=== PATIENT | female | born 1990 | race American Indian/Alaskan Native ===

== ENCOUNTER 2017-06-27 17:34 | Emergency (ER) | payer OTHER ==
[2017-06-27] MEDS ORDERED: DECADRON IM ONE (23:40)
[2017-06-27] MEDS ORDERED: BENADRYL PO ONE (23:40)
[2017-06-27] MEDS ORDERED: PEPCID PO ONE (23:40)
--- NOTE | 2017-06-27 23:40 | Emergency Department Report ---
ED Allergic Reaction HPI - General Chief complaint: Allergic Reaction Stated complaint: BEE STING/DIZZY Source: patient Mode of arrival: Ambulatory Limitations: No Limitations - History of Present Illness Initial Comments: 27 year old female presents to ED with allergic reaction to bee sting. patient states she brushed bee off of her shirt after she was stung. patient states her tongue was swollen prior to ED visit but has began to resolve. patient states that tongue is now numb. patient is stable,neurologically intact and in no acute distress. patient denies SOB, PATRICE, wheezing. MD Complaint: allergic reaction -: Sudden Exposure: insect bite Symptoms: orolingual swelling Severity: mild Treatment Prior to Arrival: none - Related Data Previous Rx's Medication Instructions Recorded Last Taken Type Hydroxyzine HCl 25 mg PO BID #6 tablet 06/28/17 Unknown Rx Allergies Allergy/AdvReac Type Severity Reaction Status Date / Time aspirin AdvReac Unknown Verified 06/27/17 18:58 latex AdvReac Swelling Verified 06/27/17 18:58 red dye AdvReac Unknown Verified 06/27/17 18:58 ED Review of Systems ROS: Stated complaint: BEE STING/DIZZY Other details as noted in HPI Constitutional: denies: chills, fever Eyes: denies: eye pain, eye discharge, vision change ENT: denies: ear pain, throat pain Respiratory: denies: cough, shortness of breath, wheezing Cardiovascular: denies: chest pain, palpitations Endocrine: no symptoms reported Gastrointestinal: denies: abdominal pain, nausea, diarrhea Genitourinary: denies: urgency, dysuria, discharge Musculoskeletal: denies: back pain, joint swelling, arthralgia Skin: denies: rash, lesions Neurological: denies: headache, weakness, paresthesias Psychiatric: denies: anxiety, depression Hematological/Lymphatic: denies: easy bleeding, easy bruising ED Past Medical Hx - Past Medical History Previous Medical History?: No - Surgical History Past Surgical History?: Yes Hx Cholecystectomy: Yes - Social History Smoking Status: Never Smoker Substance Use Type: None - Medications Home Medications: Home Medications Medication Instructions Recorded Confirmed Last Taken Type Hydroxyzine HCl 25 mg PO BID #6 tablet 06/28/17 Unknown Rx ED Physical Exam - General Limitations: No Limitations General appearance: alert, in no apparent distress - Head Head exam: Present: atraumatic, normocephalic - Eye Eye exam: Present: normal appearance, EOMI - ENT ENT exam: Present: normal exam, normal orophraynx, mucous membranes moist, TM's normal bilaterally, other (no oral or facial swelling present on examination) - Neck Neck exam: Present: normal inspection, full ROM. Absent: tenderness - Respiratory Respiratory exam: Present: normal lung sounds bilaterally. Absent: respiratory distress, wheezes, rales, rhonchi, stridor - Cardiovascular Cardiovascular Exam: Present: regular rate, normal rhythm. Absent: systolic murmur, diastolic murmur, rubs, gallop - GI/Abdominal GI/Abdominal exam: Present: soft, normal bowel sounds. Absent: distended, tenderness, guarding, rebound - Rectal Rectal exam: Present: deferred - Extremities Exam Extremities exam: Present: normal inspection - Back Exam Back exam: Present: normal inspection - Neurological Exam Neurological exam: Present: alert, oriented X3, normal gait - Psychiatric Psychiatric exam: Present: normal affect, normal mood - Skin Skin exam: Present: warm, dry, intact, normal color. Absent: rash ED Course Vital Signs 06/27/17 06/28/17 18:51 01:45 Temperature 98 F 99 F Pulse Rate 84 69 Respiratory 16 16 Rate Blood Pressure 140/90 Blood Pressure 139/83 [Right] O2 Sat by Pulse 98 98 Oximetry ED Medical Decision Making - Medical Decision Making 27 year old female presents to ED with allergic reaction to bee sting today. patient is stable, neurologically intact and in no acute distress. patient has been observed for several hours and has no signs of oral/facial swelling, PATRICE, SOB, wheezing. patient was given PO benadryl and PO pepcid during ED visit and states she feels better. Critical care attestation.: If time is entered above; I have spent that time in minutes in the direct care of this critically ill patient, excluding procedure time. ED Disposition Clinical Impression: Allergic reaction to bee sting Disposition: DC-01 TO HOME OR SELFCARE Is pt being admited?: No Does the pt Need Aspirin: No Condition: Stable Instructions: Insect Bite or Sting (ED) Prescriptions: Hydroxyzine HCl 25 mg PO BID #6 tablet Referrals: PRIMARY CARE, [Primary Care Provider] - 3-5 Days
[2017-06-28 02:59] VITALS: BP 139/83
== END 2017-06-28 01:45 | disposition home or self-care (01) ==
LOC: ED 17:34
DX: T63.441A Toxic effect of venom of bees, accidental (unintentional), initial encounter (principal); Z79.82 Long term (current) use of aspirin; Z91.040 Latex allergy status
CPT/HCPCS: 99282; J1100

== ENCOUNTER 2017-08-30 22:45 | Emergency (ER) | payer SELFPAY ==
[2017-08-31 00:26] LABS: Basophils % (Auto) 0.5 % (0.0-1.8); Eosinophils % (Auto) 2.6 % (0.0-4.3); Hemoglobin 11.6 gm/dl (10.1-14.3); Mean Corpuscular HGB Conc 32 % (30-34); Mean Corpuscular Volume 78 fl (79-97); Platelet Count 184 K/mm3 (140-440); Red Cell Distribution Width 15.9 % (13.2-15.2); White Blood Count 5.6 K/mm3 (4.5-11.0)
[2017-08-31 00:31] LABS: Mean Corpuscular Hemoglobin 25 pg (28-32)
[2017-08-31 00:44] LABS: Anion Gap 18 mmol/L; BUN/Creatinine Ratio 16; Blood Urea Nitrogen 11 mg/dL (7-17); Carbon Dioxide 25 mmol/L (22-30); Chloride 101.9 mmol/L (98-107); Glucose 82 mg/dL (65-100); INR 0.96 (0.87-1.13); Partial Thromboplastin Time 33.3 Sec. (24.2-36.6); Potassium 3.8 mmol/L (3.6-5.0); Sodium 141 mmol/L (137-145)
[2017-08-31 01:01] VITALS: BP 142/84
== END 2017-08-31 04:30 | disposition left against medical advice (07) ==
LOC: ED 22:45
DX: R07.9 Chest pain, unspecified (principal); Z53.21 Procedure and treatment not carried out due to patient leaving prior to being seen by health care provider
CPT/HCPCS: 36415; 80048; 84484; 84703; 85025; 85610; 85730; 93005; 93010

== ENCOUNTER 2017-09-19 15:01 | Emergency (ER) | payer SELFPAY ==
[2017-09-19 15:22] VITALS: BP 120/80
[2017-09-19] MEDS ORDERED: MOTRIN PO ONE (15:33)
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
--- NOTE | 2017-09-19 17:26 | XRay Report ---
FINAL REPORT EXAM: XR ANKLE 3+V LT HISTORY: fall ankle pain the in the left ankle TECHNIQUE: AP, lateral, and oblique views of the left ankle PRIORS: None. FINDINGS: On the oblique film only, there is a subtle oblique linear lucency in the distal fibula medullary canal. I cannot confirm a cortical break on either end of this line nor can identify this on the other two views. An acute nondisplaced fracture of the distal fibula is not excluded, however. There is no other evidence for acute fracture or dislocation. Mild soft tissue swelling around the entire ankle is seen. No radiopaque foreign bodies are seen. The ankle mortise is intact. Bony mineralization is normal and joint spaces are maintained. A large spur is present off the plantar aspect of the calcaneus. IMPRESSION: On one view only, oblique linear lucency through the distal fibula without a definite cortical break. Possible non displaced acute fracture is not excluded.
--- NOTE | 2017-09-19 17:27 | XRay Report ---
FINAL REPORT EXAM: XR KNEE 3V LT HISTORY: fall knee pain in the left knee TECHNIQUE: AP, oblique, and lateral views of the left knee PRIORS: None. FINDINGS: No acute fracture or dislocation is seen. The soft tissues are unremarkable with no evidence for suprapatellar joint effusion. Joint spaces are maintained and bony mineralization is normal. IMPRESSION: Negative views of the left knee.
== END 2017-09-19 16:41 | disposition home or self-care (01) ==
LOC: ED 15:01
DX: S83.8X2A Sprain of other specified parts of left knee, initial encounter (principal); S93.492A Sprain of other ligament of left ankle, initial encounter; K21.9 Gastro-esophageal reflux disease without esophagitis; Z91.040 Latex allergy status; Z88.6 Allergy status to analgesic agent; Z88.8 Allergy status to other drugs, medicaments and biological substances; X58.XXXA Exposure to other specified factors, initial encounter; Y93.89 Activity, other specified; Y92.89 Other specified places as the place of occurrence of the external cause; Y99.8 Other external cause status
CPT/HCPCS: 99283

== ENCOUNTER 2017-09-22 22:00 | Emergency (ER) | payer SELFPAY ==
--- NOTE | 2017-09-23 00:58 | Cat Scan Report ---
FINAL REPORT PROCEDURE: CT HEAD/BRAIN WO CON TECHNIQUE: Computerized tomography of the head was performed without contrast material. HISTORY: headache COMPARISON: No prior studies are available for comparison. FINDINGS: Brain: Brain density appears normal. No evidence of intracranial hemorrhage. No parenchymal hemorrhage, mass lesions or mass effect are seen. No abnormal extraxial fluid collects or masses are seen. Ventricles: Ventricles are normal size and are midline. Bone Windows: No evidence of skull fracture. Paranasal sinuses: There is mild mucosal thickening in the right side of the maxillary sinus. Mild mucosal thickening seen in the left maxillary sinus. Nodular densities visualized posteriorly in the left maxillary sinus measuring 1.4 centimeters suggesting a polyp or mucous retention cyst. Visualized portions of the paranasal sinuses otherwise are clear. Mastoid air cells: Clear IMPRESSION: Negative unenhanced CT of the brain. Mild paranasal sinus disease as described.
--- NOTE | 2017-09-23 01:04 | Cat Scan Report ---
FINAL REPORT PROCEDURE: CT CERVICAL SPINE WO CON TECHNIQUE: Computerized tomography of the cervical spine was performed from the skull base to T1 without contrast material. HISTORY: headache COMPARISON: No prior studies are available for comparison. FINDINGS: No fracture or subluxation. Prevertebral soft tissues appear normal. Posterior elements are intact. Disc spaces are well preserved. No focal disc herniation or spinal stenosis visualized. Bone density appears normal. IMPRESSION: Negative exam..
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
[2017-09-23 02:42] VITALS: BP 132/80
== END 2017-09-23 02:42 | disposition home or self-care (01) ==
LOC: ED 22:00
DX: R51 Headache (principal); M54.2 Cervicalgia; J32.9 Chronic sinusitis, unspecified; K21.9 Gastro-esophageal reflux disease without esophagitis; G43.909 Migraine, unspecified, not intractable, without status migrainosus; Z88.8 Allergy status to other drugs, medicaments and biological substances; Z88.6 Allergy status to analgesic agent; Z91.040 Latex allergy status
CPT/HCPCS: 70450; 72125; 99283

== ENCOUNTER 2017-10-07 05:21 | Emergency (ER) | payer OTHER ==
[2017-10-07] MEDS ORDERED: ASPIRIN PO ONE (05:39)
[2017-10-07 07:40] LABS: Basophils % (Auto) 0.7 % (0.0-1.8); Eosinophils # (Auto) 0.1 K/mm3 (0.0-0.4); Eosinophils % (Auto) 2.9 % (0.0-4.3); Hematocrit 38.1 % (30.3-42.9); Hemoglobin 12.1 gm/dl (10.1-14.3); Lymphocytes # (Auto) 1.6 K/mm3 (1.2-5.4); Lymphocytes % (Auto) 36.3 % (13.4-35.0); Mean Corpuscular HGB Conc 32 % (30-34); Mean Corpuscular Hemoglobin 25 pg (28-32); Mean Corpuscular Volume 79 fl (79-97); Monocytes # (Auto) 0.4 K/mm3 (0.0-0.8); Monocytes % (Auto) 8.3 % (0.0-7.3); Platelet Count 199 K/mm3 (140-440); Red Blood Count 4.82 M/mm3 (3.65-5.03); Red Cell Distribution Width 15.7 % (13.2-15.2)
[2017-10-07 07:44] LABS: BUN/Creatinine Ratio 16; Blood Urea Nitrogen 11 mg/dL (7-17); Calcium 9.2 mg/dL (8.4-10.2); Hemolysis Index 4
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
--- NOTE | 2017-10-07 12:30 | XRay Report ---
AP CHEST : 10/07/17 05:21:00 CLINICAL: Chest pain. COMPARISON:None FINDINGS: Normal heart and pulmonary vessels. The lungs are normally expanded and clear. The bones and soft tissues are unremarkable. IMPRESSION: Normal chest.
[2017-10-07 13:06] VITALS: BP 128/81
== END 2017-10-07 13:43 | disposition home or self-care (01) ==
LOC: ED 05:21
DX: M94.0 Chondrocostal junction syndrome [Tietze] (principal); R09.89 Other specified symptoms and signs involving the circulatory and respiratory systems; K21.9 Gastro-esophageal reflux disease without esophagitis; G43.909 Migraine, unspecified, not intractable, without status migrainosus; R56.9 Unspecified convulsions; Z90.49 Acquired absence of other specified parts of digestive tract; Z88.6 Allergy status to analgesic agent; Z88.8 Allergy status to other drugs, medicaments and biological substances; Z91.040 Latex allergy status
CPT/HCPCS: 36415; 71010; 80048; 84484; 85025; 93005; 93010

== ENCOUNTER 2017-11-03 09:14 | Emergency (ER) | payer SELFPAY ==
[2017-11-03 10:13] VITALS: BP 130/70
--- NOTE | 2017-11-03 14:55 | Emergency Department Report ---
ED Headache HPI - General Chief Complaint: Headache Stated Complaint: HEADACHE Time Seen by Provider: 11/03/17 14:15 Source: patient Exam Limitations: no limitations - History of Present Illness Initial Comments: Patient reports that she has chronic headache at the back of her head with dizziness and blurred vision with nausea. She says she has a primary care physician at [facility] and she called and they told her to go to the emergency room. Patient says she has never had a CT scan or MRI for chronic headaches. She says she's never been referred to neurologist. Patient denies any cough or shortness of breath. Denies any vomiting or loss of vision. When asked, positive nasal congestion with runny nose and she reports that she is being treated with amoxicillin and then Augmentin over the last few weeks and she is not feeling any better. She said she's never been prescribed any decongestion. Pain is 6 out of 10, feels like pressure. Patient is that she takes Zofran for nausea but that is not helping. Denies any loss of consciousness or head injury. Patient reports history of panic attack and shingles at age 14. Timing/Duration: episodic, waxing and waning, other (chronic and started on and off 2 weeks. Patient reports not getting better) Quality: severe, pressure Head Injury Location: occipital Recent Head Trauma: chronic headaches Associated Symptoms: nausea/vomiting, nasal congestion, nasal drainage, vision changes, other (dizziness). denies: confusion, fatigue, facial pain, fever/ chills, flushing, loss of consciousness, numbness in legs/feet, rash, seizures, stiff neck Allergies/Adverse Reactions: Allergies aspirin Adverse Reaction (Verified 09/19/17 15:10) Unknown latex Adverse Reaction (Verified 09/19/17 15:10) Swelling metoclopramide [From Reglan] Adverse Reaction (Verified 09/19/17 15:12) Unknown red dye Adverse Reaction (Verified 09/19/17 15:10) Unknown tramadol Adverse Reaction (Verified 09/19/17 15:12) Unknown Home Medications: Ambulatory Orders Hydroxyzine HCl 25 mg PO BID #6 tablet 06/28/17 Acetaminophen with Codeine [Tylenol with Codeine #3 Tablet] 1 each PO Q8H #10 tablet 09/19/17 Amoxicillin [Amoxicillin TAB] 875 mg PO BID #14 tablet 10/07/17 Metaxalone [Skelaxin] 800 mg PO TID #30 tablet 10/07/17 Naproxen [Naprosyn] 500 mg PO BID #14 tablet 10/07/17 Acetaminophen [Tylenol] 500 mg PO Q6HR PRN #20 tablet 11/03/17 Azithromycin [Zithromax Tri-Fly] 500 mg PO QAM 3 Days #3 tablet 11/03/17 Cetirizine HCl [ZyrTEC] 10 mg PO QAM 14 Days #14 capsule 11/03/17 Fluticasone [Flonase] 1 spray NS QDAY 14 Days #1 bottle 11/03/17 Promethazine [Phenergan TAB] 25 mg PO Q6HR PRN #12 tab 11/03/17 methylPREDNISolone [Medrol Dose Fly] 4 mg PO QAM 6 Days #1 pack 11/03/17 ED Review of Systems ROS: Stated complaint: HEADACHE Other details as noted in HPI Comment: All other systems reviewed and negative Constitutional: no symptoms reported Eyes: vision change (blurred vision). denies: eye pain, eye discharge ENT: congestion. denies: ear pain, throat pain, dental pain, hearing loss, epistaxis Respiratory: no symptoms reported Cardiovascular: denies: chest pain, palpitations, dyspnea on exertion, edema, syncope, paroxysmal nocturnal dyspnea Gastrointestinal: nausea. denies: abdominal pain, vomiting, diarrhea, constipation, hematemesis, melena, hematochezia Genitourinary: denies: urgency, dysuria, frequency, hematuria Musculoskeletal: denies: back pain, joint swelling, arthralgia, myalgia Skin: denies: rash Neurological: headache, other (dizziness). denies: weakness, numbness, paresthesias, confusion, abnormal gait ED Past Medical Hx - Past Medical History Previous Medical History?: Yes Hx GERD: Yes Hx Headaches / Migraines: Yes (headache) Hx Seizures: Yes Additional medical history: Pituitary Tumor. Panic attack - Surgical History Past Surgical History?: Yes Hx Cholecystectomy: Yes Additional Surgical History: Tubal Ligation - Family History Family history: hypertension - Social History Smoking Status: Never Smoker Substance Use Type: None - Medications Home Medications: Home Medications Medication Instructions Recorded Confirmed Last Taken Type Hydroxyzine HCl 25 mg PO BID #6 tablet 06/28/17 Unknown Rx Acetaminophen with Codeine 1 each PO Q8H #10 tablet 09/19/17 Unknown Rx [Tylenol with Codeine #3 Tablet] Amoxicillin [Amoxicillin TAB] 875 mg PO BID #14 tablet 10/07/17 Unknown Rx Metaxalone [Skelaxin] 800 mg PO TID #30 tablet 10/07/17 Unknown Rx Naproxen [Naprosyn] 500 mg PO BID #14 tablet 10/07/17 Unknown Rx Acetaminophen [Tylenol] 500 mg PO Q6HR PRN #20 tablet 11/03/17 Unknown Rx Azithromycin [Zithromax Tri-Fly] 500 mg PO QAM 3 Days #3 tablet 11/03/17 Unknown Rx Cetirizine HCl [ZyrTEC] 10 mg PO QAM 14 Days #14 capsule 11/03/17 Unknown Rx Fluticasone [Flonase] 1 spray NS QDAY 14 Days #1 bottle 11/03/17 Unknown Rx Promethazine [Phenergan TAB] 25 mg PO Q6HR PRN #12 tab 11/03/17 Unknown Rx methylPREDNISolone [Medrol Dose 4 mg PO QAM 6 Days #1 pack 11/03/17 Unknown Rx Fly] ED Physical Exam - General Limitations: No Limitations General appearance: alert, in no apparent distress - Head Head exam: Present: atraumatic, normocephalic, normal inspection - Expanded Head Exam Expanded Head exam: Absent: laceration, abrasion, contusion, hematoma, racoon eyes, young's sign, general tenderness, tenderness of temporal artery, CSF rhinorrhea , CSF otorrhea - Eye Eye exam: Present: normal appearance, PERRL, EOMI. Absent: scleral icterus, conjunctival injection, nystagmus, periorbital swelling, periorbital tenderness Pupils: Present: normal accommodation - Expanded Eye Exam Expanded Eyelids: Normal Inspection: Left (bilateral) Pupils: Regular, Round: Bilateral, Reactive: Bilateral Sclera/Conjunctival: Normal Inspection: Bilateral Anterior chamber: Normal Inspection: Bilateral Posterior chamber: Normal Inspection: Bilateral Visual acuity (R) = 20/: 20 (20/20 both eyes) Visual acuity (L) = 20/: 20 - ENT ENT exam: Present: normal orophraynx, mucous membranes moist, normal external ear exam, other (bilateral nasal mucosa congested with erythema and clear drainage .bilateral maxillary sinus tender to palpate). Absent: normal exam, TM 's normal bilaterally (bilateral TM congested without any erythema) - Respiratory Respiratory exam: Present: normal lung sounds bilaterally. Absent: respiratory distress, chest wall tenderness, accessory muscle use - Cardiovascular Cardiovascular Exam: Present: regular rate, normal rhythm, normal heart sounds. Absent: systolic murmur, diastolic murmur - GI/Abdominal GI/Abdominal exam: Present: soft, normal bowel sounds. Absent: distended, tenderness, guarding, rebound, rigid, organomegaly, mass, bruit, pulsatile mass - Extremities Exam Extremities exam: Present: normal inspection, full ROM, normal capillary refill , other (no clubbing, cyanosis or edema. +2 pulses in all extremities). Absent : tenderness, pedal edema, joint swelling, calf tenderness - Back Exam Back exam: Present: normal inspection, full ROM, other (ambulates without any difficulties). Absent: tenderness, CVA tenderness (R), CVA tenderness (L), muscle spasm, paraspinal tenderness, vertebral tenderness, rash noted - Neurological Exam Neurological exam: Present: alert, oriented X3, normal gait, reflexes normal. Absent: motor sensory deficit - Expanded Neurological Exam Expanded Neurological exam: Absent: innattentive, memory loss-remote event, memory loss- recent event, ataxia, receptive aphasia, expressive aphasia, total aphasia, tremor, protecting the airway Patient oriented to: Present: person, place, time Speech: Present: fluid speech Cranial nerves: EOM's Intact: Normal, Gag Reflex: Normal, Tongue Deviation: Normal, Nystagmus: Normal, Facial Sensation: Normal Cerebellar function: Romberg: Normal Upper motor neuron: Pronator Drift: Normal, Sensory Extinction: Normal Sensory exam: Upper Extremity Light Touch: Normal, Upper Extremity Temperature: Normal, UE 2 Point Discrimination: Normal, Lower Extremity Light Touch: Normal, Lower Extremity Temperature: Normal, LE 2 Point Discrimination: Normal Motor strength exam: RUE: 5, LUE: 5, RLE: 5, LLE: 5 DTR: bicep (R): 2+, bicep (L): 2+, tricep (R): 2+, tricep (L): 2+, knee (R): 2+ , knee (L): 2+, ankle (R): 2+, ankle (L): 2+ Best Eye Response (Claudia): (4) open spontaneously Best Motor Response ([place]): (6) obeys commands Best Verbal Response (Claudia): (5) oriented Claudia Total: 15 - Psychiatric Psychiatric exam: Present: normal affect, normal mood - Skin Skin exam: Present: warm, dry, intact, normal color. Absent: rash ED Course Vital Signs 11/03/17 10:08 Temperature 98.8 F Pulse Rate 75 Respiratory 16 Rate Blood Pressure 130/70 O2 Sat by Pulse 97 Oximetry - Reevaluation(s) Reevaluation #1: 11/03/17 16:33 Patient is stable. Received that Deltasone ED Medical Decision Making - Radiology Data Radiology results: report reviewed CT scan brain without contrast reveals no acute findings and incidental findings were 1.2 cm retention cyst left maxillary sinus. Positive for hypertrophic turbinates. - Medical Decision Making ED course: Pt here for chronic headache that worsened over the last [address] scan reveals no acute intracranial findings except she has maxillary sinus retention cyst and also hypertrophic nasal turbinates. refer to radiology section for complete CT findings. Physical findings were congested, erythema nasal mucosa with tenderness to palpate to nasal sinuses. Congested p.m. without any erythema. Patient with recurrent sinusitis, headache suspect from sinus infection, nausea and dizziness also suspect from sinus infection. She is allergic to multiple medication and already takes Zofran at home. Patient received deltasone 60 mg by mouth and will be discharged home with medication. Tests results of CT scan, clinical findings, diagnosis and treatment plan the patient and she voiced understanding. Patient discharged home in stable condition with prescription for Medrol Dosepak, Tri-Fly, Phenergan, Tylenol, Zyrtec and Flonase. I gave her referral to neurologist and to follow-up with her primary care physician and also referral to ear nose and throat. Critical care attestation.: If time is entered above; I have spent that time in minutes in the direct care of this critically ill patient, excluding procedure time. 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, bilateral Disposition: - TO HOME OR SELFCARE Is pt being admited?: No Does the pt Need Aspirin: No Condition: Stable Instructions: Sinusitis (ED), Dizziness (ED), Acute Headache (ED), Acute Nausea and Vomiting (ED) Additional Instructions: Please follow-up with ear nose and throat doctor for mucus retention cysts in your left maxillary sinus Please follow up with neurologist regarding chronic headache Please call your primary care physician and schedule appointment for follow-up visit sinusitis Medication as prescribed Flush sinus out with nasal saline twice daily and this will help to relieve congestion Takes Zyrtec and Flonase to relieve sinus congestion Take 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 is cause drowsiness Prescriptions: Acetaminophen [Tylenol] 500 mg PO Q6HR PRN #20 tablet PRN Reason: Headache Azithromycin [Zithromax Tri-Fly] 500 mg PO QAM 3 Days #3 tablet Cetirizine HCl [ZyrTEC] 10 mg PO QAM 14 Days #14 capsule Fluticasone [Flonase] 1 spray NS QDAY 14 Days #1 bottle methylPREDNISolone [Medrol Dose Fly] 4 mg PO QAM 6 Days #1 pack Promethazine [Phenergan TAB] 25 mg PO Q6HR PRN #12 tab PRN Reason: Nausea Referrals: [facility] [Outside] - 11/06/17 CHAPARRO SANDAR MD [Staff Physician] - 3-5 Days RADHA ADLER MD [Staff Physician] - 3-5 Days Forms: Work/School Release Form(ED)
--- NOTE | 2017-11-03 15:16 | Cat Scan Report ---
CT scan of head without IV contrast: History: Headache and dizziness. Findings: Ventricles are normal in size and midline in location. No evidence of acute ischemia, hemorrhage or mass. No extra-axial fluid collection. Normal brainstem and cerebellum. Incidentally noted 1.2 cm retention cyst left maxillary sinus. Impression: Retention cyst left maxillary sinus. Also noted hypertrophic turbinates. No acute intracranial abnormality.
[2017-11-03] MEDS ORDERED: DELTASONE PO ONE (16:34)
== END 2017-11-03 17:00 | disposition home or self-care (01) ==
LOC: ED 09:14
DX: J32.0 Chronic maxillary sinusitis (principal); R51 Headache; K21.9 Gastro-esophageal reflux disease without esophagitis; Z90.49 Acquired absence of other specified parts of digestive tract; Z98.51 Tubal ligation status
CPT/HCPCS: 70450; 99283

== ENCOUNTER 2017-12-08 21:03 | Emergency (ER) | payer SELFPAY ==
--- NOTE | 2017-12-08 22:46 | XRay Report ---
FINAL REPORT EXAM: XR SPINE LUMBOSACRAL 2-3V HISTORY: pain in the low back TECHNIQUE: AP, lateral and coned-down views of the lumbar spine PRIORS: None. FINDINGS: The vertebral body heights and disc spaces are well maintained. The alignment is normal. No evidence for spondylolysis or spondylolisthesis is seen. Pedicles are intact bilaterally at all levels. The paraspinal soft tissues are unremarkable. IMPRESSION: Normal lumbar spine.
--- NOTE | 2017-12-08 23:54 | Emergency Department Report ---
HPI - General Chief Complaint: Back Pain/Injury Time Seen by Provider: 12/08/17 22:46 - HPI HPI: Patient is a 27-year-old female who presents to ED complaining of back pain and right leg pain. Patient states that she received a lumbar puncture on November 09 2017 at [facility]. Patient states since then she x-ray and some anterior tenderness back pain and right leg muscle spasms. Patient states she does have a neurologist that she follows up with that [place]. Patient states that when pain started today she decided to come here instead. Patient states she is having pain at the site of the lumbar puncture as well has some thigh pain. He denies any trauma, falls or injuries to the leg or back. ED Past Medical Hx - Past Medical History Previous Medical History?: Yes Hx GERD: Yes Hx Headaches / Migraines: Yes (headache) Hx Seizures: Yes Additional medical history: Pituitary Tumor. Panic attack - Surgical History Past Surgical History?: Yes Hx Cholecystectomy: Yes Additional Surgical History: Tubal Ligation - Social History Smoking Status: Never Smoker Substance Use Type: None - Medications Home Medications: Home Medications Medication Instructions Recorded Confirmed Last Taken Type Hydroxyzine HCl 25 mg PO BID #6 tablet 06/28/17 Unknown Rx Amoxicillin [Amoxicillin TAB] 875 mg PO BID #14 tablet 10/07/17 Unknown Rx Naproxen [Naprosyn] 500 mg PO BID #14 tablet 10/07/17 Unknown Rx Acetaminophen [Tylenol] 500 mg PO Q6HR PRN #20 tablet 11/03/17 Unknown Rx Azithromycin [Zithromax Tri-Fly] 500 mg PO QAM 3 Days #3 tablet 11/03/17 Unknown Rx Cetirizine HCl [ZyrTEC] 10 mg PO QAM 14 Days #14 capsule 11/03/17 Unknown Rx Fluticasone [Flonase] 1 spray NS QDAY 14 Days #1 bottle 11/03/17 Unknown Rx Promethazine [Phenergan TAB] 25 mg PO Q6HR PRN #12 tab 11/03/17 Unknown Rx methylPREDNISolone [Medrol Dose 4 mg PO QAM 6 Days #1 pack 11/03/17 Unknown Rx Fly] Acetaminophen with Codeine 1 each PO Q8H #10 tablet 12/08/17 Unknown Rx [Tylenol with Codeine #3 Tablet] Metaxalone [Skelaxin] 800 mg PO TID #30 tablet 12/08/17 Unknown Rx ED Review of Systems ROS: Stated complaint: BODYACHE Other details as noted in HPI Constitutional: denies: chills, fever Eyes: denies: eye pain, eye discharge, vision change ENT: denies: ear pain, throat pain Respiratory: denies: cough, shortness of breath, wheezing Cardiovascular: denies: chest pain, palpitations Endocrine: no symptoms reported Gastrointestinal: denies: abdominal pain, nausea, diarrhea Genitourinary: denies: urgency, dysuria, discharge Musculoskeletal: denies: back pain, joint swelling, arthralgia Skin: denies: rash, lesions Neurological: denies: headache, weakness, paresthesias Psychiatric: denies: anxiety, depression Hematological/Lymphatic: denies: easy bleeding, easy bruising Physical Exam - Physical Exam Vital Signs: Vital Signs 12/08/17 21:07 Temperature 98.5 F Pulse Rate 70 Respiratory 18 Rate Blood Pressure 139/80 O2 Sat by Pulse 97 Oximetry Physical Exam: GENERAL: Alert and oriented x3, no apparent distress, Normal Gait, atraumatic. HEAD: Head is normocephalic and a-traumatic. EYES: Extra ocular muscles are intact. Pupils are equal, round, and reactive to light and accommodation. EARS: symetrical, atraumatic, non tender, ear canal clear and moderate cerumen, tympanic membrance non inflamed. gross auditory nml bilaterally. NOSE: Nose symetrical, Nontender,Nares appeared normal. MOUTH:Mouth is well hydrated and without lesions. Tonsils nonerythematous or swollen, Uvula midline, Tongue not elevated. Mucous membranes are moist. Posterior pharynx clear, no exudate or lesions. Patent airways. NECK: Supple. Non edematous, No carotid bruits. No lymphadenopathy or thyromegaly. No C-spine tenderness LUNGS: Symetrical with respiration, No wheezing, no rales or crackles, CTAB. HEART: S1, S2 present, regular rate and rhythm without murmur, no rubs, no gallops. Non tender to palpation ABDOMEN: No organomegaly was noted,Positive bowel sounds, soft, and non- distended. . Nontender to palpation on all Quadrants, NO CVA tenderness. BACK: Full range of motion, no spinal tenderness, nontender to palpation. BREAST: Symetrical, Supple bilaterally, No Masses, lumps, lesions, ulcerations. GENITOURINARY: External genitalia without erythema, exudate or discharge. Vaginal vault is without discharge. Cervix is of normal color without lesion. Cervical os is closed. No bleeding noted. Uterus is noted to be of normal size and nontender. No cervical motion tenderness. No masses are palpated. The adnexa are without masses or tenderness. UROGENITAL: No scrotal mass, Scrotum non tender to palpation bilaterally, no hernia, no scars or penile discharge. EXTREMITIES/MUSCULOSKELETAL: No cyanosis, clubbing, rash, lesions or edema. Full ROM bilaterally. UE/LE Pulses 2+ bilaterally. LE and UE 5+ strength bilaterally, straight leg raise negative bilaterally NEUROLOGIC: The patient is cooperative with no focal neurologic deficits. Cranial nerves II through XII are grossly intact. Normal speech. Normal sensation in bilateral upper and lower extremities, No loss of sensation, SKIN: Warm and dry, No lesions, No ulceration or induration present. ED Course Vital Signs 12/08/17 21:07 Temperature 98.5 F Pulse Rate 70 Respiratory 18 Rate Blood Pressure 139/80 O2 Sat by Pulse 97 Oximetry ED Medical Decision Making - Radiology Data Radiology results: report reviewed, image reviewed FINAL REPORT EXAM: XR SPINE LUMBOSACRAL 2-3V HISTORY: pain in the low back TECHNIQUE: AP, lateral and coned-down views of the lumbar spine PRIORS: None. FINDINGS: The vertebral body heights and disc spaces are well maintained. The alignment is normal. No evidence for spondylolysis or spondylolisthesis is seen. Pedicles are intact bilaterally at all levels. The paraspinal soft tissues are unremarkable. IMPRESSION: Normal lumbar spine. Transcribed By: [facility] Dictated By: CHAPARRO ALCOCER MD Electronically Authenticated By: CHAPARRO ALCOCER MD Signed Date/Time: 12/08/17 2542 - Medical Decision Making 27-year-old female presents to ED with back pain status post lumbar puncture and myalgia of the right thigh ED course: . Vital signs are normal patient is in no acute distress Discussed with patient follow-up with primary care physician. I also discussed the patient follow-up with the neurologist at [place]. I discussed the patient I will give her referrals for neurology and ENT for her to get a second opinion and she requested. Discussed the patient and take medications as prescribed. Patient has no neurological deficit. Patient is alert and oriented 3 and understands all instructions given. Critical care attestation.: If time is entered above; I have spent that time in minutes in the direct care of this critically ill patient, excluding procedure time. ED Disposition Clinical Impression: Myalgia, Lumbar back pain Disposition: DC- TO HOME OR SELFCARE Is pt being admited?: No Does the pt Need Aspirin: No Condition: Stable Instructions: Trigger Point Pain (ED), Lumbar Radiculopathy (ED), Musculoskeletal Pain (ED) Additional Instructions: Make sure to follow up with the primary care physician as discussed. Follow-up with her neurologist at [facility]. Take all your medications as you've been prescribed. If you have any worsening symptoms or develop new symptoms please return to ED immediately. Prescriptions: Acetaminophen with Codeine [Tylenol with Codeine #3 Tablet] 1 each PO Q8H #10 tablet Metaxalone [Skelaxin] 800 mg PO TID #30 tablet Referrals: OTF JONES MD [Primary Care Provider] - 3-5 Days DION ANDRADE MD [Staff Physician] - 3-5 Days [facility] [Provider Group] - 3-5 Days ENT [facility] [Provider Group] - 3-5 Days ENT [facility] [Provider Group] - 3-5 Days Forms: Work/School Release Form(ED) Time of Disposition: 23:55
[2017-12-09 00:14] VITALS: BP 140/83
== END 2017-12-09 00:13 | disposition home or self-care (01) ==
LOC: ED 21:03
DX: M54.5 Low back pain (principal); M79.605 Pain in left leg; M62.838 Other muscle spasm; G43.909 Migraine, unspecified, not intractable, without status migrainosus; K21.9 Gastro-esophageal reflux disease without esophagitis; Z90.49 Acquired absence of other specified parts of digestive tract; Z98.51 Tubal ligation status; Z88.6 Allergy status to analgesic agent; Z88.8 Allergy status to other drugs, medicaments and biological substances; Z91.040 Latex allergy status; Z91.09 Other allergy status, other than to drugs and biological substances
CPT/HCPCS: 72100; 99283

== ENCOUNTER 2018-01-29 20:02 | Emergency (ER) | payer SELFPAY | END 2018-01-29 20:53 | disposition left against medical advice (07) | LOC: ED 20:02 | DX: R51 Headache (principal); Z53.21 Procedure and treatment not carried out due to patient leaving prior to being seen by health care provider ==